=== PATIENT | male | born 1975 | race African-American/Black ===

== ENCOUNTER 2020-06-29 22:14 | Emergency (ER) | payer SELFPAY | END 2020-06-29 22:22 | disposition home or self-care (01) | LOC: BURERS 22:14 | DX: J02.9 Acute pharyngitis, unspecified (principal); F17.210 Nicotine dependence, cigarettes, uncomplicated | CPT/HCPCS: 99281 ==

== ENCOUNTER 2024-09-15 12:45 | Emergency (ER) | payer BC, OTHER ==
[2024-09-15] MEDS ORDERED: Ibuprofen 800 MG TAB ONE (13:07)
== END 2024-09-15 13:20 | disposition home or self-care (01) ==
LOC: BURERS 12:45
DX: S63.502A Unspecified sprain of left wrist, initial encounter (principal); S50.812A Abrasion of left forearm, initial encounter; F17.210 Nicotine dependence, cigarettes, uncomplicated; V89.2XXA Person injured in unspecified motor-vehicle accident, traffic, initial encounter; W22.10XA Striking against or struck by unspecified automobile airbag, initial encounter; Y92.410 Unspecified street and highway as the place of occurrence of the external cause
CPT/HCPCS: 99283